=== PATIENT | male | born 1965 | race Caucasian/White ===

== ENCOUNTER 2022-10-30 08:00 | Outpatient (RCR) | payer BC, SELFPAY | END 2022-12-05 12:54 | disposition home or self-care (01) | PROVIDERS: PCP Family Medicine; Visit Provider Orthopaedic Surgery Sports Medicine | DX: M17.11 Unilateral primary osteoarthritis, right knee (principal); M25.561 Pain in right knee; Z51.89 Encounter for other specified aftercare | CPT/HCPCS: 97012; 97140; 97161 ==

== ENCOUNTER 2023-05-12 13:01 | Outpatient (CLI) | payer BC, SELFPAY | END 2023-05-12 13:02 | disposition home or self-care (01) | LOC: NFLDREF 05-14 10:51 | PROVIDERS: PCP Family Medicine; Referring Provider Family Medicine; Visit Provider Family Medicine | DX: E78.5 Hyperlipidemia, unspecified (principal); N52.9 Male erectile dysfunction, unspecified; Z12.5 Encounter for screening for malignant neoplasm of prostate; Z13.228 Encounter for screening for other metabolic disorders | CPT/HCPCS: 80053; 80061; G0103 ==

== ENCOUNTER 2024-06-22 08:15 | Outpatient (CLI) | payer BC, SELFPAY | END 2024-06-22 08:16 | disposition home or self-care (01) | LOC: NFLDREF 06-23 03:09 | PROVIDERS: PCP Family Medicine; Referring Provider Family Medicine; Visit Provider Family Medicine | DX: E78.5 Hyperlipidemia, unspecified (principal); E78.00 Pure hypercholesterolemia, unspecified; Z12.5 Encounter for screening for malignant neoplasm of prostate | CPT/HCPCS: 80053; 80061; G0103 ==